=== PATIENT | male | born 1960 | race Caucasian/White ===

== ENCOUNTER 2024-09-12 08:40 | Day surgery (SDC) | payer OTHER, SELFPAY ==
[2024-09-05 13:03] VITALS: BMI 40.7
[2024-09-12] VITALS (10 sets, daily range): BP systolic 113–161; BP diastolic 60–79; PULSE 60–104; RESP 13–18; TEMP 36.1–36.3; O2SAT 97–99; BMI 40.0; BMI 37.8
--- NOTE | 2024-09-12 06:00 | DI.RAD.S_ITS ---
PROCEDURE: XR KNEE LT 1TO2V INDICATIONS: post op TECHNIQUE: 2 view(s) of the knee acquired. COMPARISON: None. FINDINGS: Bones: Patient is status post knee joint arthroplasty. Hardware components are in expected positions. Visualized bony structures are intact. Soft tissues: Overlying postoperative changes are noted. IMPRESSION: Expected post-operative appearance of a knee arthroplasty. Dictated by: Kelly Gamino M.D. on 09/12/2024 at 16:51 Approved by: Kelly Gamino M.D. on 09/12/2024 at 16:51
[2024-09-12] MEDS: MELOXICAM 7.5 MG TABLET 15 MG PO (09:35)
[2024-09-12] MEDS: ACETAMINOPHEN 325 MG TABLET 975 MG PO (09:35)
[2024-09-12] MEDS: LACTATED RINGERS 1,000 ML 42 ML IV ×2 (09:36→12:56)
--- NOTE | 2024-09-12 10:44 | PM.PREOP ---
Pre-operative Note Interval Note History & Physical reviewed/Exam performed by Physician: Yes Changes to H&P: No
[2024-09-12] MEDS: CEFAZOLIN 2 GM/100 ML PREMIX 100 ML IV ×2 (11:14→18:45)
[2024-09-12] MEDS: TRANEXAMIC ACID 1,000 MG VIAL 1000 MG INJ ×2 (11:23→13:52)
--- NOTE | 2024-09-12 11:42 | SUR.OPER ---
Supine on padded OR bed. Pillow under head, arms secured on padded armboards <90 degree abduction. Safety belt across torso. Non-operative leg secured with tape over blanket over lower leg. Operative leg secured in DeMayo/Ramirez/Nathe positioner. Foam padded brace at thigh of operative leg.
[2024-09-12] MEDS: VANCOMYCIN 1,000 MG VIAL 1000 MG INTRA-ARTI (12:23)
[2024-09-12] MEDS: ROPIVACAINE/EPI/CLONIDINE/KET 50 ML SYRINGE INJ (14:28)
--- NOTE | 2024-09-12 14:36 | P.OP_ITS ---
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 Post-op diagnosis: same Procedure & Clinicians Procedure: Revision of tibial component of left total knee arthroplasty with removal of hardware from prior tibial fracture fixation Same procedure as scheduled: Yes Surgeon: Oj Ace Diamond Selector: Katerina Meeks Anesthesia Type: General, Spinal, Peripheral nerve block and Local Operative Notes Estimated Blood Loss (mL): 150 Tourniquet time (min): 133 Procedure in detail: Revision of tibial component of left total knee arthroplasty and removal of prior plate fixation from ORIF of tibial plateau fracture with retention of femoral and patellar components Implants: * Size 5 attune cemented rotating platform revision tibial base plate with 14 mm x 80 mm cemented stem * Size medium concentric revision knee cone * 12 mm rotating platform posterior stabilized polyethylene insert * Retained femur (size 6 posterior stabilized uncemented attune) * Retained patellar button (35 mm) Procedure Summary: This 64-year-old male patient had an intraoperative fracture during insertion of the cement less tibial component for his primary total knee arthroplasty. It was fixed at that time with several independent screws and a plate. He was nonweightbearing for an extended period of time and eventually developed pain localized to his proximal tibia after the fracture had healed. Radiographs indicated that there was a lucency between the bone and the tibial component, likely indicating fibrous ingrowth. After a thorough discussion of the risks and benefits of continued observation versus isolated tibial component revision he wished to proceed with surgery. Intraoperatively today I found that the femoral component was well fixed as was the patellar component. I was able to easily separate the tibial base plate from the underlying bone using a sagittal saw. Due to the size of the keel it was challenging to obtain sufficient exposure to tap the tibial component out but once I had done so I found that there was minimal ingrowth on the undersurface of the base plate, as shown by the photograph below. The prior plate that had been placed during the index surgery peeled off of the bone during my medial dissection so I removed the screws in that plate and removed the plate as well. One of those screws had the head stripped off and the shaft of the screw remained in the bone. This screw had been at the very tip of the keel of the tibial component and happens to also be right at the tip of the tibial cone after I had made a freshening cut on the tibia in prep for the cone, so rather than use a broken screw removal system to remove the shaft of the screw I left it in place. Independent screws outside of the plate which did not interfere with the fixation construct were likewise left in place to limit the formation of stress risers. His bone was extremely hard, which had been noted during his prior surgery. It was very difficult to the prior surgeon to impact down his tibial component. I had similar issues today, in particular the tibial cone was very difficult to impact into place and I eventually had to replace the tibial base plate trial and impacted that down to get the cone to sink down to the level of the bone. That cone sat just on top of the remainder of the screw who has had had ripped off during attempted removal. I hand reamed up to a size 16 and used a 14 mm stem intending to bypass the holes from the prior fixation where they had been removed. At the beginning of the case I noted that he had some lateral-sided laxity and after implantation of final components I used a medial reduction osteotomy and upsized the polyethylene insert in an attempt to fill up that lateral-sided laxity as much as possible. It was improved at the conclusion of the procedure but he still opened slightly laterally with varus stress in early flexion. Procedure in Detail: This patient was seen preoperatively and evaluated for knee pain which was refractory to numerous nonoperative treatment modalities. Their pain correlated with radiographic changes. The risks and benefits of continued nonoperative management versus operative management were discussed at length and all of the patient?s questions were answered. Additional educational materials providing further details beyond our discussion in clinic were provided via a publicly available patient education video which included the incidence of medical complications associated with total knee arthroplasty, reasons for revision following total knee arthroplasty, and patient satisfaction rates following total knee arthroplasty. That video can be accessed at [email or web address] . With this understanding of the risks inherent to the procedure, the patient elected to move forward with operative management. Following preoperative optimization, the patient was scheduled for surgery. The patient was met in the preoperative holding area the day of the procedure and all questions were answered. The patient?s nares were swabbed with betadine in order to decolonize them from MRSA. Informed consent was signed and the laterality limb was marked with indelible ink.? The patient was brought back to the operating room where anesthesia was induced. The patient was transferred to the operating table and all bony prominences were padded. The operative site was prepped and draped in the usual sterile fashion. A second prep stick was utilized following drape placement. The incision was marked corresponding to the medial aspect of the tibial tubercle and the patella. Ioban was wrapped circumferentially around the knee. Prior to incision, tranexamic acid and cefazolin were administered. Templating images were displayed. A timeout procedure was performed verifying the patient?s identity, medical comorbidities, allergies, relevant medications, anesthesia type and the surgical plan. All present were in agreement. The assistance of a physician addictions counselor assistant was required for positioning, room setup, soft tissue retraction and wound closure. Without this assistance, the procedure would have been significantly more challenging and time consuming.?? The tourniquet was inflated prior to incision. I made an anterior incision over the knee, dissected through the subcutaneous tissues and identified the lateral border of the VMO. I attempted to utilize an intraosseous needle to infiltrate the bone with dilute vancomycin however his bone was extremely hard and bent 3 separate interosseous needles, with none of them able to seat appropriately and allow me to infiltrate the bone with the vancomycin, so I instead infiltrated the soft tissues around the knee diffusely was vancomycin. I identified the prior arthrotomy and dissected through this. I performed a medial peel aggressively around the medial tibia at remove scar from behind the patellar tendon as best I was able to. At this point during the surgery there was too much scar tissue for me to be able to juanita the patella but I did test the patella and found that it was well fixed. I would returned to the patellar component later in the surgery to remove some surrounding scar in an attempt to aid with tracking. Placed retractors on the anterior cortex of the femur and dissected scar off of the front of the femur. I placed Rosario clamps on the extensor mechanism both medially and laterally and excised the gutters both medially and laterally. These were sent for culture. I used an impactor to test the femur for stability and noted that it was well fixed. I therefore move forward with my plan to retain the femoral component. I positioned in the knee and hyperflexion and external rotation continued peeling around the posterior medial corner. I dissected additional scar from behind the patellar tendon. Placed a retractor posteriorly and used this to sublux the tibia anteriorly. I then proceeded with component extraction. There was interface between the base plate in the bone into which I could very easily pass a sagittal saw and I used this and all accessible areas of the tibia to free up any fibrous tissue that had attached the base plate to the bone. I used a single sided reciprocating saw to work around posteriorly and free up the component posteriorly. I passed osteotomes into all accessible areas although this was restricted by the peripheral pegs. I then impacted the tibial component out of the tibia. There was 1 area in the central medial portion where some bone came with it but all of the pegs were removed leaving pristine peg holes and the same was noted with the central keel, which was undisturbed. This confirmed my diagnosis of tibial loosening. Inspecting the fixation once the tibial component was out I noted that the prior plate had lifted off the bone so I dissected scar off of it and attempted to remove all of the screws in it. For 1 of those screws I was unsuccessful as the head ripped off and left the entirety of the shaft in place. That screw had sat just underneath and likely in direct contact with the keel of the primary total knee. I considered using a metal cutting bur to cut a portion of it inside the tibial canal or using a broken screw removal system to remove it from the medial cortex however I eventually decided to attempt to leave it in place and remove it later if it caused any interference. I noted on his preoperative CT scan that the screw was positioned very far posteriorly in the tibial canal and I had adequate room anterior to it to completely rigid reaming process. I started with a 9 mm rigid Reamer and perforated through the sclerotic bone bottom of the old tibial keel and reamed up to 16 mm which was anterior to that retained screw in the posterior aspect of the tibia. I used a tibial cutting guide to make a freshening cut on the tibia, setting this to be a flush cut medially. He was in a significant amount of varus coming into today's case so this resected lateral bone primarily. I used a Reamer with a stem attachment to prep for a medium cone and noted that the length of the cone sat directly on top of the retained screw who has had had ripped off, with the top of the cone sitting flush with the tibial cortex. I placed a cone trial and noted that it was barely underneath the tibial bone. I used a Reamer to expand the area where the rigid reamers had opened up the canal in order to prep for the keel of the revision base plate. I placed a trial tibial component inside the cone and noted that it did not sit perfectly flat on the tibial bone. It appeared that the saw had likely deflected due to sclerotic bone. I therefore made a new freshening cut using the cone trial as a template. This removed very little additional bone. The resultant cut was flush with the top of the tibial cone. I replaced the tibial trial and found that a size 10 insert was grossly appropriate so I planned to cement with this. I used a saw to open up the bone for the keel punch and used the keel punch to set the femoral rotation. The bony end of the tibia was copiously irrigated. The cone was placed. Cement was mixed and placed down the canal as well as onto the tibial component. The tibial component was compressed into place. The cone did not have any cement which extruded into its interface. The tibia was impacted down and excess cement was removed. A size 10 trial was inserted and the knee was brought into extension to pressurize the cement. A dilute mixture of Betadine and peroxide was placed in the wound while the cement dried. After the cement had fully dried I again trialed. I noted that there was some lateral-sided laxity and extension was tight with the size 10 so I performed a medial reduction osteotomy to attempt to loosen it medially and allow more extension with a larger polyethylene insert to fill up that lateral side in terminal extension. I trialed with a size 12 insert. This did result in less lateral laxity, opening approximately 1-2 mm laterally in early flexion with varus stress. There was no medial opening with valgus stress. I therefore inspected for any remaining cement and then inserted the definitive size 12 insert. The arthrotomy was closed with non-absorbable interrupted suture ensuring that this extended to the top of the arthrotomy. This was backed up with running barbed suture throughout the arthrotomy. The skin was closed with 2-0 and 3-0 sutures. Surgical glue was applied and a soft dressing was placed.?The sponge, instrument and needle counts were reported as being correct at the end of the case.??No obvious complications occurred. The patient was transferred from the operating table back to a stretcher. The patient emerged from anesthesia without difficulty and was taken to the PACU in a stable condition.? Plan for aftercare: * Weightbearing as tolerated * Incisional wound VAC in place which should remain on until the follow up visit. The battery will after week which time the cord can be removed * Cefadroxil 500 mg twice per day for 10 days for periprosthetic joint infection prophylaxis. As this is not on formulary in the hospital we will use Keflex until discharge * Aspirin 81 twice per day for DVT prophylaxis * Multimodal pain regimen with no IV opioids ordered * Anticipate discharge home tomorrow * Follow up at [facility] in 2 weeks * Detailed postoperative instructions available at [email or web address]
[2024-09-12] MEDS: OXYCODONE IR 5 MG TABLET PO ×3 (15:27→20:54)
[2024-09-12] MEDS: hydrOXYzine HCL 25 MG TABLET PO ×2 (15:27→20:55)
[2024-09-12] MEDS: IBUPROFEN 600 MG TABLET PO ×2 (16:34→21:06)
[2024-09-12] MEDS: ACETAMINOPHEN 325 MG TABLET 650 MG PO ×2 (16:35→21:06)
[2024-09-12] MEDS: LACTATED RINGERS 1,000 ML 100 ML IV (16:36)
[2024-09-12] MEDS: cephALEXin 250 MG CAPSULE 500 MG PO ×2 (16:36→20:53)
[2024-09-12] MEDS: TAMSULOSIN 0.4 MG CAPSULE PO (17:06)
[2024-09-12] MEDS: TRAZODONE 50 MG TABLET 150 MG PO (20:53)
[2024-09-12] MEDS: DOCUSATE 100 MG CAPSULE PO (20:53)
[2024-09-12] MEDS: ASPIRIN EC 81 MG TABLET PO (20:54)
[2024-09-12] MEDS: ONDANSETRON 4 MG ODT PO (20:54)
[2024-09-12] MEDS: INSULIN LISPRO 100 UNIT/ML 3ML VIAL SUBCUT (21:06)
[2024-09-13] VITALS: BP 117/56; PULSE 91; RESP 18; TEMP 36.2; O2SAT 96
[2024-09-13] MEDS: OXYCODONE IR 5 MG TABLET PO ×3 (00:46→12:47)
[2024-09-13] MEDS: LACTATED RINGERS 1,000 ML 100 ML IV (03:46)
[2024-09-13] MEDS: CEFAZOLIN 2 GM/100 ML PREMIX 100 ML IV (03:46)
[2024-09-13] MEDS: ACETAMINOPHEN 325 MG TABLET 650 MG PO ×2 (04:24→09:55)
[2024-09-13] MEDS: IBUPROFEN 600 MG TABLET PO ×2 (04:25→10:55)
[2024-09-13 05:00] VITALS: BP 111/53; PULSE 88; RESP 18; TEMP 36.2; O2SAT 97
[2024-09-13 06:00] LABS: Hematocrit 32.5 % (41-53)
[2024-09-13 08:00] VITALS: BP 114/61; PULSE 83; RESP 16; TEMP 36.3; O2SAT 98
[2024-09-13] MEDS: ASPIRIN EC 81 MG TABLET PO (08:25)
[2024-09-13] MEDS: INSULIN LISPRO 100 UNIT/ML 3ML VIAL SUBCUT ×2 (08:29→12:11)
--- NOTE | 2024-09-13 08:50 | PT.IIE ---
Current Diagnoses Mechanical loosening of unspecified internal prosthetic joint, initial encounter (09/12/24) Presence of left artificial knee joint (09/12/24) Surgery Performed Operation Date: 09/12/24 10:45 Actual Procedures p Revision of tibial component of left total knee arthroplasty with removal of hardware(Left) - Oj Ace MD Surgical History (Last Reviewed 09/12/24 @ 09:41 by Sarah Beth Marie, RN) History of total left knee replacement (06/05/22) Hx of appendectomy Hx of hernia repair Medical History (Last Reviewed 09/12/24 @ 09:41 by Sarah Beth Marie, RN) Arthritis Diabetes HTN (hypertension) Right bundle branch block (RBBB) (06/23/24) Physical Therapy Inpatient Evaluation/Re-Eval M1 PT/OT-IP Prior Functional Status Start: 09/13/24 13:10 Freq: NEEDED Status: Active Protocol: Document 09/13/24 08:50 AB (Rec: 09/13/24 13:23 AB [id number]) Medical Review Prior Functional Status Medical History Reviewed Yes Communication able to make needs known Mobility and Gait pt stated that he was independent with all mobilities and ambulation without AD Social History Household Members spouse Living Arrangements Mobile home Number of Floors (Floors) One Floor Number of Stairs To Enter/Railing? 5 steps B rails to enter Home Environment Standard Height Toilet,Walk in Shower Home Equipment Front Wheel Walker,Straight Cane,Bedside Commode,Shower Seat with Backrest,Hand Held Shower,Grab Bars Near Toilet, Grab Bars In Shower Employment Status Psych Np Employed Additional Social History Comment pt stated that he works for [employer] per pt: spouse is sick and cannot assist him but her daughter will be staying with him for ~ 2 months to assist M2 PT-IP Current Condition Start: 09/13/24 13:10 Freq: NEEDED Status: Active Protocol: Document 09/13/24 08:50 AB (Rec: 09/13/24 13:23 AB [id number]) Physical Therapy Current Condition Current Condition Evaluation Date 09/13/24 Treatment Diagnosis s/p L TKA revision; difficulty in walking Onset Date 09/12/24 M3 PT-IP Subjective Start: 09/13/24 13:10 Freq: NEEDED Status: Active Protocol: Document 09/13/24 08:50 AB (Rec: 09/13/24 13:23 AB [id number]) Subjective Physical Therapy Visit Type Type Initial Evaluation Visit Start Time 08:50 Visit Stop Time 09:45 Number of SILK FINISHER Visits 0 Physical Therapy Visit Comments Patient Comments agreeable to do PT Therapy Pain Assessment Pain When Pain Assessed At Rest Pain Present Pain Present Pain Reported Location left knee Intensity 7 Scale Used Numeric (0 - 10) Pain Management Techniques Apply Cold,Distraction, Modification of Treatment,Re- positioning,Timing of Activity with Medications M4 PT-IP Mobility and Gait Start: 09/13/24 13:10 Freq: NEEDED Status: Active Protocol: Document 09/13/24 08:50 AB (Rec: 09/13/24 13:23 AB [id number]) PT-Bed Mobility Assessment Supine to Sit Supine to Sit Standby Assistance Sit to Supine Sit to Supine Standby Assistance PT-Transfer Assessment Sit to and From Stand Sit to and from Stand Standby Assistance,1 Person Assistance,Use of Upper Extremities Equipment Transfer Assistive Device Gait Belt,Front Wheeled Walker Orthotic/Prosthetic Devices or Brace: No Transfers Transfer Destination Bed,Chair Transfer Technique ambulated Transfer Ability Level of Assist Standby Assistance,Contact Guard Assistance,1 Person Assistance,Use of Upper Extremities Comments Mobility Comments pt sittng on the chair and agreeable to do PT. obtained PLOF and home set up. post-op folder provided to pt and reviewed contents. pt completed sit to stand from chair SBA and ambulated in room using FWW ~ 30 ft requiring CGA with first few steps but SBA afterwards. pt sat on EOB. completed bed mobility sit<>supine SBA. pt agreed to do stairs. pt completed sit to stand from EOB SBA and ambulated in the hallway using FWW SBA ~ 100 ft . stair climbing training. educated pt on how to do stair . pt completed up/down 3 steps x 2 sets using FWW SBA. assisted pt back to his room. pt requested to use the toilet . pt ambulated to the toilet using FWW SBA. able to stand while using the toilet SBA using fWW for support. pt ambulated towards the sink using FWW SBA and completed handwashing. pt ambulated back to the chair using fWW SBA. positioned pt on the chair. call light and table placed within reach. Pt without further concerns Gait Assessment Gait Gait Assistance Required: Standby Assistance,Contact Guard Assist Distance (Feet) 100 Able to Maintain Weight Bearing Status Yes During Gait Assistive Devices Assistive Device Gait Belt,Front Wheeled Walker Orthotic/Prosthetic Devices or Brace: No Gait Deviations General Gait Pattern Antalgic,Decreased Stride Length,Decreased Feet Clearance Factors Limiting Gait Function Factors Limiting Gait Function Decreased Activity Tolerance, Decreased Strength,Limited Range of Motion,Pain,Poor Balance Stair Climbing Assessment Evaluation Level of Assist On Stairs Standby Assistance Devices Stair Climbing Assistive Devices Left Railing,Right Railing Technique/Endurance Stair Climbing Direction Ascend and Descend Stair Climbing Technique Step to Step Number of Steps Climbed 3 Query Text: Stair Climbing Set # Repetitions (reps) 2 PT-Balance Assessment Sitting Balance and Reactions Static Sitting Balance Ability Normal Dynamic Sitting Balance Ability Good Standing Balance and Reactions Static Standing Balance Ability Good Dynamic Standing Balance Ability Fair Device Used FWW M5 PT-IP Objective Assessments Start: 09/13/24 13:10 Freq: NEEDED Status: Active Protocol: Document 09/13/24 08:50 AB (Rec: 09/13/24 13:23 AB [id number]) Orientation Orientation/Cognition Level of Alertness Alert Orientation Name,Age,Birthday,Month,Date, Year,Day of Week,Place, Situation Language Function Ability No Deficits Noted Safety Awareness Understands Safety Issues Memory Description No Deficits Noted Strength Lower Extremity Strength Assessment Left Impaired Hip 3+/5 Knee 3+/5 Coordination Assessment Gross Coordination Gross Coordination WNL Sensation Assessment Sensation Gross Sensation WNL Muscle Tone Muscle Tone WNL Yes M6 PT-IP Treatment Start: 09/13/24 13:10 Freq: NEEDED Status: Active Protocol: Document 09/13/24 08:50 AB (Rec: 09/13/24 13:23 AB [id number]) Physical Therapy Treatment Education Education Provided Precautions,Weight Bearing Status,Post-Op Packet,Safety M7 PT-IP Assessment and Plan Start: 09/13/24 13:10 Freq: NEEDED Status: Active Protocol: Document 09/13/24 08:50 AB (Rec: 09/13/24 13:23 AB [id number]) PT Summary Assessment and Plan Potential Rehabilitation Potential Good Status of Condition at Evaluation Stable Summary Impairments Pain,ROM,Strength,Balance, Coordination,Sensation,Tone, Cognition,Bed Mobility, Transfers,Gait,Activity Tolerance Assessment Summary pt is a 64 y/o M s/p L TKA revision POD 1. pt is WBAT on LLE. pt requiring SBA with mobility and plans to go home with family to assist. pt has outpt PT set up. Goals Bed Mobility Goal Independent Transfer Goal Independent,Front Wheeled Walker Gait Goal Independent,Front Wheel Walker Gait Distance 300 Other Goals up/down 5 steps B rails mod I Days to Meet Goals 3 Frequency of Treatment Frequency Of Treatment Twice a Day Treatment Plan Physical Therapy Treatment Plan Bed Mobility Training,Transfer Training,Gait Training, Therapeutic Exercise,Balance Retraining,Post Op Education, Discharge Planning,Hot or Cold Pack,Neuromuscular Re-ed, Coordination Retraining,Manual Therapy Weight Bearing Status Weight Bearing Status Weight Bear as Tolerated Allowed Weight Bearing Amount (enter % LLE WBAT or #) (%) Discharge Recommendations PT Discharge Recommendations Home with Assistance, Outpatient PT Transportation Needs at Discharge Private Vehicle
[2024-09-13] MEDS: DOCUSATE 100 MG CAPSULE PO (09:52)
[2024-09-13] MEDS: CHOLECALCIFEROL (VITAMIN D3) 5,000 UNIT TABLET 5000 UNIT PO (09:52)
[2024-09-13] MEDS: cephALEXin 250 MG CAPSULE 500 MG PO (09:52)
--- NOTE | 2024-09-13 10:29 | P.DS_ITS ---
History of Present Illness History of Present Illness Date Patient Seen: 09/13/24 Time Patient Seen: 10:29 Chief complaint: OPB Narrative: This 64-year-old male patient had an intraoperative fracture during insertion of the cement less tibial component for his primary total knee arthroplasty. It was fixed at that time with several independent screws and a plate. He was nonweightbearing for an extended period of time and eventually developed pain localized to his proximal tibia after the fracture had healed. Radiographs indicated that there was a lucency between the bone and the tibial component, likely indicating fibrous ingrowth. After a thorough discussion of the risks and benefits of continued observation versus isolated tibial component revision he wished to proceed with surgery. Discharge Providers Provider Discharge Date: 09/13/24 Primary care physician: Lisa Hwang DO Consults: 09/12/24 06:00 Consult to Anesthesiology Routine Comment: Consulting Provider: Anesthesiologist Reason for consultation: Regional block for post operative pain control Has provider been notified: No 09/12/24 08:47 Consult to Anesthesiology Routine Comment: Consulting Provider: Anesthesiologist Reason for consultation: Regional block for post operative pain control Has provider been notified: No 09/12/24 15:47 Consult to Discharge Planning Routine Comment: Consult to Physical Therapy Evaluate & Treat Comment: Physician Instructions: postop TKA protocol Discharge provider: Manuel Holland PA-C Summary Hospital Course Discharge Diagnosis: 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 Hospital Course: 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 Post-op diagnosis: same Procedure & Clinicians Procedure: Revision of tibial component of left total knee arthroplasty with removal of hardware from prior tibial fracture fixation Same procedure as scheduled: Yes Surgeon: [employer] Assistant: Katerina Meeks Anesthesia Type: General, Spinal, Peripheral nerve block and Local Operative Notes Estimated Blood Loss (mL): 150 Tourniquet time (min): 133 Procedure in detail: Revision of tibial component of left total knee arthroplasty and removal of prior plate fixation from ORIF of tibial plateau fracture with retention of femoral and patellar components Implants: * Size 5 attune cemented rotating platform revision tibial base plate with 14 mm x 80 mm cemented stem * Size medium concentric revision knee cone * 12 mm rotating platform posterior stabilized polyethylene insert * Retained femur (size 6 posterior stabilized uncemented attune) * Retained patellar button (35 mm) Status at Discharge Cognitive/behavioral status at discharge: oriented Functional status at discharge: uses cane/walker Overall status at discharge: patient is back to baseline Time Spent with Patient Time spent: Less than 30 minutes Exam Vital Signs (past 8 hours): - 09/13/24 05:00 09/13/24 08:00 Temperature 97.2 F L 97.4 F L Pulse Rate 88 83 Respiratory Rate 18 16 Blood Pressure 111/53 L 114/61 Pulse Oximetry 97 98 Oxygen Flow Rate 0 Oxygen Delivery Method Room Air Oxygen Flow Rate 0 Narrative Exam Narrative: Patient found sitting in chair.Patient's pain is controlled with oral medication. ?Pain is localized to surgical site. ?Patient declines any new numbness or tingling at the surgical extremity. ?Patient denies any shortness of breath, dizziness, light-headedness, nausea, vomiting, fever or chills. 4/5 strength in hip flexors, quadriceps, hamstrings, bilaterally. 5/5 strength DF, PF, EHL bilaterally. Sensation to light touch intact throughout BLE. Calves soft, compressible, nontender. Dressing placed intraoperatively CDI. Resp Effort & Inspection: normal respiratory effort and able to speak in complete sentences Objective Labs 09/13/24 04:40 Labs: Laboratory Results - last 24 hr 09/13/24 04:40 Hgb 11.0 L Hct 32.5 L PFSH Medical History Right bundle branch block (RBBB) (06/23/24) Arthritis HTN (hypertension) Diabetes Surgical History History of total left knee replacement (06/05/22) Hx of appendectomy Hx of hernia repair Social History household members: spouse Smoking Status: Former smoker alcohol intake: former Discharge Assessment & Plan Assessment and Plan Assessment: Status post Revision of tibial component of left total knee arthroplasty with removal of hardware from prior tibial fracture fixation Plan of Treatment: Discharge to home. ? Ambulate and weight bear as tolerated with assistive devices. ? Aspirin 81 mg twice a day for 6 weeks for DVT prevention. ? Baseline pain relief with acetaminophen 500mg every 4 hours as needed and meloxicam 7.5 mg b.i.d. ?Patient has been prescribed oxycodone 5 mg every 4 ?hours as needed for breakthrough pain. ? Cefadroxil 500 mg twice per day for 10 days for periprosthetic joint infection prophylaxis. Initiate physical therapy in the next 5-10 days. ? * Incisional wound VAC in place which should remain on until the follow up visit. The battery will after week which time the cord can be removed. * Keep dressing clean and dry. Keep dressing on until first office visit. If dressing becomes dirty or disrupted, replace with appropriate sized dressing. Follow up in clinic in 2 weeks for wound check. Contact clinic if there are any questions or concerns. Discharge Plan Discharge Plan Patient Disposition: Home Discharge orders & Medications Discharge Orders: Discharge (Order); Ordered 09/13/24 Ordered By: Manuel Holland Prescriptions: New aspirin 81 mg Tablet,Delayed Release (Dr/Ec) 81 mg PO BID Qty: 90 0RF Continued lisinopril 40 mg tablet 40 mg PO BID hydroxyzine HCl 25 mg tablet 25 mg PO ONCE PM trazodone 50 mg tablet 150 mg PO BEDTIME tamsulosin 0.4 mg Capsule 0.4 mg PO QPM hydrochlorothiazide 12.5 mg tablet 25 mg PO DAILY cholecalciferol (vitamin D3) [Vitamin D3] 125 mcg (5,000 unit) Tablet 250 mcg PO DAILY Glyxambi 25-5 mg Tablet 1 tab PO QAM Discontinued ibuprofen 600 mg Tablet 600 mg PO TID PRN (Reason: Pain, Moderate) Follow up/Referrals: Lisa Hwang DO [Primary Care Provider] - Diet/Activity/Treatments Diet: Diet as Tolerated Activity: Ambulate multiple times a day. Use a cane or walker as needed. Full weight on leg. Cold/Heat Therapy: Use ice multiple times a day. Skin/Wound/Dressing Care Report to your healthcare provider any signs of infection, such as:: chills, fever, night sweats, unusual drainage and unusual redness Dressing: May shower. Leave dressing in place until follow up in office. No bathing or otherwise soaking incision. Call the office if the dressing becomes saturated inside. Visit Report/Discharge Packet Instructions: DI for Knee Replacement Stand Alone Forms: Patient Portal/API, Surgery Discharge Discharge Data Primary Care Provider: Lisa Hwang Attending Provider: Oj [employer] VTE Deep Vein Thrombosis/Pulmonary Embolism Present on Admission: No
--- NOTE | 2024-09-13 11:20 | CM.DANOTE ---
Patient is a 64 yo male who was admitted [facility] on 09/12/24 for TKA. Pt has [employer] for insurance and his PCP is Lisa Hwang. EMR was reviewed. Per Ortho PA, pt tolerated procedure well and pain is controlled and voiding independently and tolerating diet and medically stable to discharge home today with outpt f/u and no identified barriers to discharge. Per PT, pt participated well and completed stairs to get into his home with 5 steps and recommending home with assist and outpt PT. SW met bedside with pt and explained role and pt in bedside chair and he confirms he lives in [place] with his adult children and is active and independent at baseline and does not typically use DME for ambulation and denies any hx of HH or SNF. Pt confirms his family is available to provide assist and transport at d/c today and pt already has outpt PT set up. Pt denies any discharge planning needs at this time and preference is home today and just spoke to his family and they can provide transport between [phone] today. SW updated RN. Plan: Patient to d/c home today via family POV and assist and outpt PT and no further SW needs at this time. FABI Valerio Discharge Planning/Care Management CM Discharge Assessment Start: 09/13/24 11:18 Freq: Status: Active Protocol: Document 09/13/24 11:18 BF (Rec: 09/13/24 11:20 BF [id number]) Discharge Planning Assessment Assigned Cnc Lathe Machine Operator FABI Mcgarry DPOA/Assigned Designee Name none Advance Directives? No Advance Directives on File No History Provided By Patient,Family Member,Medical Record Has Patient been admitted in last 30 No days? Prior Living Arrangements House Household Members spouse Type of transporation used prior to Drives own vehicle admit Independent with ADL's Yes Is patient alert and oriented? Yes Caregiver for Another No Community Services used prior to Physical Therapy admission: DME Already Rented / Owned Cane Patient/Family Preference OP PT Therapy Barriers to Discharge No Discharge Plan Home Community Services Physical Therapy Transportation Arrangement Family to transport at d/c, around [phone] today Referrals Initiated None needed Whiteboard Updated in Patient Room with Yes name and ext. # of Cnc Lathe Machine Operator Review Status In Process Please Provide Date Initial DC 09/13/24 Assessment Was Performed Next Review Type Continued Stay Review Pre-Anesthesia Assessment Start: 09/05/24 13:03 Freq: Status: Active Protocol: Document 09/05/24 13:03 LB (Rec: 09/05/24 13:27 LB [id number]) Pre-Anesthesia Assessment PAC Comment 09/05/24 Chart review. Proliance visit note states He would like surgical team to know he can be aggressive coming out of surgery and apologizes ahead of time. Preferred Name Richard Patient Information Reviewed Via Chart Review Diagnostic Results BMP/CMP,CBC,EKG Comment 06/23/24 Outside results. 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 Smoking Status Former smoker Has it been 2 weeks or less since No patient quit smoking Musculoskeletal Symptoms Abnormal Gait,Joint Pain,Joint Swelling,Numbness,Tingling Patient is completely paralyzed or No completely immobile Comment Has walker for post op. Is patient on oxygen? No Hx Sleep Apnea No Currently Taking a Beta Inessa No Anti-Coagulant Therapy No Cardiac Testing No Hx Pacemaker/ICD No Diabetes Yes HgbA1C 6.9 Date 06/23/24 Comment A1c 6.9 06/23/24. Presence of External or Internal Medical Yes: Left knee. Devices Marital Status Lives With spouse Number of Stairs To Enter/Railing? 5 steps to enter. Support System Child/Children Does the Patient Have Assistance After Yes Surgery Patient Discharge Plan Description Return Home Comment is currently in SNF. Additional comment Daughter is coming to help him post op. Advance Directives on File No
== END 2024-09-13 14:05 | disposition home or self-care (01) ==
LOC: OR 08:42 → AC 08:43
PROVIDERS: PCP Family Medicine; Referring Provider Orthopaedic Surgery Adult Reconstructive Orthopaedic Surgery; Visit Provider Orthopaedic Surgery Adult Reconstructive Orthopaedic Surgery
PROC: (CPT 27486; principal; 2024-09-12 10:45)
DX: T84.033A Mechanical loosening of internal left knee prosthetic joint, initial encounter (principal); Z87.891 Personal history of nicotine dependence
CPT/HCPCS: 27486; 36415; 73560; 82962; 85014; 85018; 87070; 87075; 87176; 87205; 97116; 97161; 97530; C1776; A9270; C1713; J0690; J1100; J1815; J2250; J2405; J2704; J3010